=== PATIENT | male | born 1965 | race African-American/Black ===

== ENCOUNTER 2016-10-25 16:40 | Emergency (ER) | payer SELFPAY ==
[~2016-10-25] VITALS: Ht 180.3 cm; Wt 110.0 kg
[2016-10-25 21:43] LABS: BASOPHILS % 0.7 % (0.0-2.0); EOSINOPHILS % 1.3 % (0.0-5.0); HEMATOCRIT. 38.7 % (42.0-52.0); HEMOGLOBIN. 12.9 g/dL (14.0-18.0); LYMPHOCYTES % 11.7 % (20.0-50.0); MEAN CORPUSCULAR HEMOGLOBIN 28.6 pg (28.0-32.0); MEAN CORPUSCULAR VOLUME 85.6 fL (80.0-94.0); MEAN PLATELET VOLUME 6.4 fl (7.4-10.4); MONOCYTES % 6.6 % (2.0-8.0); NEUTROPHILS % 79.7 % (40.0-76.0); PLATELET 390 x1000/uL (130-400); RED BLOOD CELL COUNT 4.52 mill/uL (4.7-6.1); RED CELL DISTRIBUTION WIDTH 13.5 % (11.6-14.6)
[2016-10-25] MEDS ORDERED: LEVETIRACETAM 500MG TABLET PO ONE (21:45)
[2016-10-25 21:53] LABS: CARBON DIOXIDE 29 mEq/L (21-32); CHLORIDE 106 mEq/L (98-107); ETHANOL BLOOD < 10 mg/dL
[2016-10-25] MEDS ORDERED: KETOROLAC 60MG/2ML VIAL IM ONE (22:30)
[2016-10-25 23:31] VITALS: BP 129/89
== END 2016-10-26 00:02 | disposition home or self-care (01) ==
LOC: ER 16:48 → EDBD 16:48 → ER 10-26 00:02
DX: R56.9 Unspecified convulsions (principal)
CPT/HCPCS: 36415; 80048; 85025; 96374; 99284; G0482; J1885; Z7610